=== PATIENT | female | born 1960 | race Caucasian/White ===

== ENCOUNTER 2018-12-23 10:21 | Emergency (ER) | payer OTHER ==
[~2018-12-23] VITALS: Ht 157.5 cm; Wt 86.2 kg
[~2018-12-23 10:21] MED LIST: LISINOPRIL-HCT1 EAC2 PO; LOVASTAT20; PROTONIX40 MG PO; ZOFRAN ODT4 MG PO
[2018-12-23] MEDS ORDERED: LISINOPRIL20 MG PO (11:05)
[2018-12-23] MEDS ORDERED: OMEPRAZOLE 20 M20 M1 PO (11:06)
[2018-12-23] MEDS ORDERED: MECLIZINE HCL25 M1 PO (11:06)
[2018-12-23] MEDS ORDERED: CRESTOR20 MG PO (11:06)
[2018-12-23] MEDS ORDERED: PROZAC20 MG PO (11:07)
[2018-12-23] MEDS ORDERED: HYDROCHLOROTH12.5 M1 PO (11:07)
[2018-12-23] MEDS ORDERED: ALBUTEROL2.5 MG/31 INH (11:08)
[2018-12-23 11:10] LABS: ABSOLUTE EOSINOPHILS 0.1 thou/uL (0.0-0.7); ABSOLUTE LYMPHOCYTES 1.6 thou/uL (0.8-5.3); ABSOLUTE MONOCYTES 0.5 thou/uL (0.0-1.2); ABSOLUTE NEUTROPHILS 2.8 thou/uL (1.6-8.1); BASOPHILS 0.7 %; HEMATOCRIT 42.4 % (37.0-47.0); HEMOGLOBIN 14.4 gm/dL (12.0-15.0); LYMPHOCYTES 30.8 %; MCH 29.9 pg (26.0-34.0); MCV 87.8 fL (80.0-100.0); MONOCYTES 10.3 %; MPV 7.5 fl. (7.2-11.1); NUCLEATED RBCS 0 /100WBC; PLATELET COUNT* 233 thou/uL (150-400); POLYS 56.2 %; RBC 4.83 mil/uL (4.20-5.00); RDW-CV 12.7 % (10.5-14.5); WBC 5.1 thou/uL (4.0-11.0)
[2018-12-23 11:16] LABS: PROTIME 10.3 Seconds (9.20-11.50)
[2018-12-23 11:17] LABS: ANION GAP 11 mmol/L (7-16); BUN 13 mg/dL (7-18); CALCIUM 9.6 mg/dL (8.5-10.1); CHLORIDE 104 mmol/L (98-107); CO2 25 mmol/L (21-32); CREATININE 1.1 mg/dL (0.6-1.3); GLUCOSE 145 mg/dL (70-99); POTASSIUM 3.5 mmol/L (3.5-5.1); SODIUM 140 mmol/L (136-145)
[2018-12-23 11:26] LABS: ALBUMIN 3.6 g/dL (3.4-5.0); ALKALINE PHOSPHATASE 95 U/L (46-116); SGOT 29 U/L (15-37); SGPT 46 U/L (30-65); TOTAL BILIRUBIN 0.5 mg/dL (<0.1-1.0); TOTAL PROTEIN 7.7 g/dL (6.4-8.2); TROPONIN-I LEVEL <0.06 ng/mL (<0.06)
[2018-12-23] MEDS ORDERED: ATIVAN1 MG PO (13:22)
[2018-12-23] MEDS ORDERED: FLEXERIL PO (13:22)
[2018-12-23 13:43] VITALS: BP 111/53
--- NOTE | 2018-12-23 16:23 | EKG ---
[place] [address] ELECTROCARDIOGRAM REPORT Name: PAULKELLY SNYDER [id number] Admission: 12/23/18 Attend Phys: Discharge: 12/23/18 Date of : 62 Report #: [id number] THIS REPORT FOR: //name// [facility] ED Test Date: 2018-12-23 Test Time: 10:28:44 Pat Name: KELLY MILLER Department: Room: Gender: F [employer] Technician: [facility] : 1960 Requested By: James Gaming Order Number: [id number] MD: Khari Wilde Measurements Intervals [place] Rate: 86 P: 55 OR: 132 QRS: 52 QRSD: 80 T: 79 QT: 349 QTc: 418 Interpretive Statements Sinus rhythm Compared to ECG 07/30/2012 21:38:10 No significant changes Electronically Signed On 12-23-2018 16:23:21 CDT by Khari Wilde [email or web address] <ELECTRONICALLY SIGNED> By: Khari Wilde MD, [facility] 12/23/18 1623 1028 1028 Khari Wilde MD, FACC /EPI
== END 2018-12-23 13:50 | disposition home or self-care (01) ==
LOC: M.ERS 10:21
PROVIDERS: Emergency Medicine Emergency Medical Services
DX: M54.2 Cervicalgia (principal); R20.0 Anesthesia of skin; M79.18 Myalgia, other site; I10 Essential (primary) hypertension; E78.5 Hyperlipidemia, unspecified; M19.90 Unspecified osteoarthritis, unspecified site; F41.9 Anxiety disorder, unspecified; E66.9 Obesity, unspecified; Z68.34 Body mass index [BMI] 34.0-34.9, adult; Z86.73 Personal history of transient ischemic attack (TIA), and cerebral infarction without residual deficits; Z90.49 Acquired absence of other specified parts of digestive tract